=== PATIENT | female | born 1950 | race Caucasian/White ===

== ENCOUNTER → 2021-06-20 | Outpatient (CLI) | payer MEDICARE | LOC: ORTHO 06-19 15:47 | PROVIDERS: ATTEND Orthopaedic Surgery | DX: M17.0 Bilateral primary osteoarthritis of knee (principal) | CPT/HCPCS: 20610; G0463 ==

== ENCOUNTER → 2021-07-11 | Outpatient (CLI) | payer MEDICARE | LOC: ORTHO 14:00 | PROVIDERS: ATTEND Orthopaedic Surgery | DX: M17.0 Bilateral primary osteoarthritis of knee (principal) | CPT/HCPCS: 99213 ==